=== PATIENT | male | born 1995 | race Caucasian/White ===

== ENCOUNTER 2017-05-20 15:52 | Emergency (ER) | payer MEDICAID, OTHER ==
[~2017-05-20] VITALS: Ht 170.2 cm; Wt 74.8 kg
[2017-05-20 16:10] VITALS: BP_SYST 121
[2017-05-20 16:50] LABS: BILIRUBIN,URINE NEGATIVE (NEGATIVE); BLOOD, URINE NEGATIVE (NEGATIVE); CLARITY/URINE CLEAR (CLEAR); COLOR,URINE YELLOW (YELLOW); GLUCOSE,URINE NEGATIVE (NEGATIVE); KETONES,URINE NEGATIVE (NEGATIVE); LEUKOCYTE ESTERASE ,URINE NEGATIVE (NEGATIVE); NITRITE, URINE NEGATIVE (NEGATIVE); PROTEIN URINE NEGATIVE (NEGATIVE)
[2017-05-20 17:01] LABS: BARBITURATE, URINE NEGATIVE (NEG <=200); BENZODIAZEPINE, URINE NEGATIVE (NEG <=150); METHAMPHETAMINES SCREEN,URINE NEGATIVE (NEG <=500); URINE AMPHETAMINE NEGATIVE (NEG <=500); URINE METHADONE NEGATIVE (NEG <=200)
[2017-05-20 17:02] LABS: CANNABINOID, URINE NEGATIVE (NEG <=50); COCAINE, URINE POSITIVE (NEG <=150); OPIATE, URINE NEGATIVE (NEG <=100); PHENCYCLIDINE SCREEN,URINE NEGATIVE (NEG <=25); UR TRICYCLIC ANTIDEPRESSANTS NEGATIVE (NEG <=300); URINE OXYCODONE SCREEN NEGATIVE (NEG <=100); URINE PROPOXYPHENE SCREEN NEGATIVE (NEG <=300)
[2017-05-20] MEDS ORDERED: KETOROLAC TROMETHAMINE 60 MG/2 ML VIAL IM ONE (17:30)
[2017-05-20 18:30] VITALS: BP_SYST 116
== END 2017-05-20 18:30 | disposition home or self-care (01) ==
LOC: SED 15:52
DX: M54.5 Low back pain (principal); R03.0 Elevated blood-pressure reading, without diagnosis of hypertension; F17.210 Nicotine dependence, cigarettes, uncomplicated; Z71.6 Tobacco abuse counseling
CPT/HCPCS: 80307; 81003; 96372; 99284; J1885

== ENCOUNTER 2023-02-04 17:45 | Emergency (ER) | payer MEDICAID ==
[~2023-02-04] VITALS: Ht 170.2 cm; Wt 81.6 kg
[2023-02-04 18:00] VITALS: BP_SYST 126; PULSE 69; RESP 16; TEMP 97.5
[2023-02-04] MEDS ORDERED: AMOX500C2 PO (18:37)
[2023-02-04] MEDS ORDERED: IBUP-1970 PO (18:37)
[2023-02-04] MEDS ORDERED: BACI15OI13 TP (18:37)
[2023-02-04 18:46] VITALS: BP_SYST 126; PULSE 69; RESP 16; TEMP 97.5
== END 2023-02-04 18:45 | disposition home or self-care (01) ==
LOC: SED 17:45
DX: H66.92 Otitis media, unspecified, left ear (principal); Z79.899 Other long term (current) drug therapy
CPT/HCPCS: 99283